=== PATIENT | male | born 1940 | race Caucasian/White ===

== ENCOUNTER 2018-01-11 21:14 | Emergency (ER) | payer MEDICARE, OTHER ==
[2018-01-11] MEDS ORDERED: TETANUS AND DIPHTHERIA PF 0.5 ML SYR IM ONE (22:28)
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
[2018-01-11] MEDS ORDERED: HYDROCODONE/APAP 5/325MG TABLET PO ONE (22:50)
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
== END 2018-01-11 22:53 | disposition home or self-care (01) ==
LOC: ER 21:14
DX: S60.221A Contusion of right hand, initial encounter (principal); S00.03XA Contusion of scalp, initial encounter; I87.2 Venous insufficiency (chronic) (peripheral); Z95.0 Presence of cardiac pacemaker; Z79.01 Long term (current) use of anticoagulants; W17.89XA Other fall from one level to another, initial encounter; Y93.55 Activity, bike riding; Y92.89 Other specified places as the place of occurrence of the external cause
CPT/HCPCS: 70450; 96372; 99283

== ENCOUNTER 2018-01-12 18:03 | Emergency (ER) | payer MEDICARE, OTHER ==
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
== END 2018-01-12 19:54 | disposition home or self-care (01) ==
LOC: ER 18:03
DX: H53.8 Other visual disturbances (principal); S09.90XD Unspecified injury of head, subsequent encounter; M25.512 Pain in left shoulder; I87.2 Venous insufficiency (chronic) (peripheral); Z95.0 Presence of cardiac pacemaker; Z79.01 Long term (current) use of anticoagulants; Y93.55 Activity, bike riding
CPT/HCPCS: 70450; 99283